=== PATIENT | female | born 1985 | race Caucasian/White ===

== ENCOUNTER → 2017-02-13 | Day surgery (SDC) | payer OTHER ==
[2017-02-13] VITALS (12 sets, daily range): BP systolic 108–137; BP diastolic 64–78
[~2017-02-13] VITALS: Ht 154.9 cm; Wt 57.2 kg
[~2017-02-13] MED LIST: CEFOXITIN SOD IVPB ONE; DiphenhydrAMINE 50mg/ml Inj IVP PRN; Glycopyrrolate 0.2mg/ml 1ml Vial ONE; HYDROmorphone 1mg/ml Carpuject SUBQ PRN; Hydromorphone 0.5mg/0.5ml inj IVP PRN; Ketorolac 30mg Inj IV PRN; Ketorolac 30mg Inj ONE; LR 1000ml ONE; Meperidine 25mg/ml Inj IV PRN; Metoclopramide 10mg/2ml Inj IVP PRN; Midazolam 2mg/2ml Inj IVP PRN; Midazolam 2mg/2ml Inj ONE; NKM; NS IVPB ONE; Neostigmine 1mg/ml 10ml Inj ONE; Norco 5mg/325mg tab ORAL PRN; Propofol 10mg/ml 20ml IV ONE; ProvayBlue 5mg/ml 10ml amp INJ ONE; Ropivacaine 5mg/ml Vial 20ml INJ ONE; Succinylcholine 20mg/ml 10ml vial ONE; Zemuron 50mg/5ml Inj IV ONE; cefOXitin 1gm Inj ONE; fentaNYL 100 mcg/2 mL IV ONE
--- NOTE | 2017-02-13 05:08 | Pre-op HX & Phy Repo 2 SIG ---
DATE OF ADMISSION: 02/13/2017 PREOPERATIVE DIAGNOSES: 1. A 4-cm left ovarian cyst. 2. Dysmenorrhea. HISTORY OF PRESENT ILLNESS: The patient has been followed by me since November of 2016 at which time a left ovarian hemorrhagic cyst was discovered. The patient was subsequently followed two more times and the cyst grew in size. Her last ultrasound was on 02/09/2017, which revealed a 4-cm left ovarian cyst with hyperechoic component, most consistent with an endometrioma, possibly a dermoid. The patient was extensively counseled, and decision was made to proceed with surgery. PAST MEDICAL HISTORY: None. PAST SURGICAL HISTORY: None. ALLERGIES: None. SOCIAL HISTORY: The patient does not smoke. She drinks socially. She lives with her boyfriend. FAMILY HISTORY: Consistent with breast cancer in maternal aunt in her 40s and maternal grandmother with leukemia in her 40s. PHYSICAL EXAMINATION: VITAL SIGNS: Blood pressure 100/60, respiratory rate 18, temperature afebrile. GENERAL: A young female, in no acute distress. HEAD AND NECK: Pupils are reactive to light. No goiter. LUNGS: Clear to auscultation bilaterally. CARDIAC: Regular rate and rhythm. No murmurs. ABDOMEN: Soft, nondistended, and nontender. PELVIC: Bimanual exam consistent with a 4 cm left ovarian cyst, . Uterus normal size. ASSESSMENT: The patient has a left ovarian cyst consistent with possibly endometrioma. PLAN: CO2 laser pelviscopy and ovarian cystectomy as well as hysteroscopy. The patient was warned regarding complications of the surgery including rare complication of bowel or bladder injury, blood clots, pulmonary embolism, seizure complications, or infections. The patient understands these complications as possible and with her boyfriend. Candy Lemus M.D. DR: KUNAL JOB#: [id number] CC:
--- NOTE | 2017-02-13 07:54 | Pre-Procedure Note/Attestation ---
Pre-Procedure Note/Attestation Complete Prior to Procedure Planned Procedure: left Procedure Narrative: CO2 laser pelviscopy, ovarian cystectomy, possible ablation of endometriosis, hysteroscopy Indications for Procedure Pre-Operative Diagnosis: left ovarian complex cyst Attestation I attest that I discussed the nature of the procedure; its benefits; risks and complications; and alternatives (and the risks and benefits of such alternatives ), prior to the procedure, with the patient (or the patient's legal tax compliance representative). I attest that, if there was a reasonable possibility of needing a blood transfusion, the patient (or the patient's legal tax compliance representative) was given the [facility] standardized written summary, pursuant to the [place] Zechariah Blood Safety Act ([place] Health and Safety Code # 1645, as amended). I attest that I re-evaluated the patient just prior to the surgery and that there has been no change in the patient's H&P, except as documented below: [place] RICE Feb 13, 2017 07:54
--- NOTE | 2017-02-13 08:18 | Anethesia Preoperative Eval ---
Anesthesia Pre-op PMH/ROS General Date of Evaluation: Feb 13, 2017 Time of Evaluation: 07:12 Anesthesiologist: Deborah ASA Score: ASA 2 Mallampati Score Class I : Soft palate, uvula, fauces, pillars visible Class II: Soft palate, uvula, fauces visible Class III: Soft palate, base of uvula visible Class IV: Only hard plate visible Mallampati Classification: Class II Surgeon: Mariah Diagnosis: Pelvic pain Surgical Procedure: D&C Hysteroscopy Laparoscopy Laser treatment Anesthesia History: none Family History: no anesthesia problems Allergies: Coded Allergies: PENICILLINS (Verified Allergy, Unknown, Hives, 02/11/17) Medications: see eMAR Past Medical History Cardiovascular: Denies: CAD, HTN, [place], arrhythmia, other, valve dz Pulmonary: Denies: COPD, JAYE, asthma, other Gastrointestinal/Genitourinary: Denies: CRI, ESRD, GERD, other Neurologic/Psychiatric: Denies: CVA, TIA, dementia, depression/anxiety, other Endocrine: Denies: DM, hypothyroidism, other, steroids HEENT: Denies: ATQAS[place] (L), ATQASUK (R), cataract (L), cataract (R), glaucoma, other Hematology/Immune: Denies: DVT, anemia, bleeding disorder, other Musculoskeletal/Integumentary: Denies: DDD, DJD, OA, RA, edema, other PMH Narrative: as above PSxH Narrative: none Anesthesia Pre-op Phys. Exam Physician Exam Last Vital Signs Date Time Temp Pulse Resp B/P Pulse Ox O2 Delivery O2 Flow Rate FiO2 02/13/17 06:23 97.1 75 18 137/78 98 Room Air Constitutional: NAD Neurologic: CN 2-12 intact Cardiovascular: RRR, no M/R/G Respiratory: CTA Gastrointestinal: S/NT/ND Airway Exam Mallampati Score: Class II MO: full Neck: flexible ROM: full Teeth: intact Dentures: no lower, no upper Anesthesia Pre-op A/P Labs see chart Urine Test Test 02/13/17 06:00 Urine HCG, Qualitative Negative Studies Pre-op Studies: EKG - NSR Risk Assessment & Plan Assessment: ASA 2 Plan: GA with ETT PONV prevention Status Change Before Surgery: No Pre-Antibiotics Drug: Cefoxitin 1gr. Given Within 1 Hr of Incision: No Time Given: 08:02 DANIE BRYANT M.D. Feb 13, 2017 08:18
--- NOTE | 2017-02-13 10:49 | Immediate Post-Op Evaluation ---
Immediate Post-Op Evalulation Immediate Post-Op Evalulation Procedure: D&C Hysteroscopy Laparoscopic removal of L ovarian cyst Date of Evaluation: Feb 13, 2017 Time of Evaluation: 09:30 IV Fluids: 1200 Blood Products: none Estimated Blood Loss: min Urinary Output: 200 Blood Pressure Systolic: 116 Blood Pressure Diastolic: 62 Pulse Rate: 74 Respiratory Rate: 20 O2 Sat by Pulse Oximetry: 99 Temperature (Fahrenheit): 97.6 Pain Score (1-10): 2 Nausea: No Vomiting: No Complications none Patient Status: awake, patent, extubated, none Hydration Status: adequate DANIE BRYANT M.D. Feb 13, 2017 10:49
--- NOTE | 2017-02-13 10:50 | 48 Hour Post Anesthesia Eval ---
Post Anesthesia Evaluation Procedure: D&C Hysteroscopy Laparoscopic removal of L ovarian cyst Date of Evaluation: Feb 13, 2017 Time of Evaluation: 10:49 Blood Pressure Systolic: 122 0: 64 Pulse Rate: 76 Respiratory Rate: 20 Temperature (Fahrenheit): 97.6 O2 Sat by Pulse Oximetry: 98 Airway: patent Nausea: No Vomiting: No Pain Intensity: 1 Hydration Status: adequate Cardiopulmonary Status: stable Mental Status/LOC: patient returned to baseline Follow-up Care/Observations: n/a Post-Anesthesia Complications: none Follow-up care needed: ready to discharge DANIE BRYANT M.D. Feb 13, 2017 10:50
--- NOTE | 2017-02-18 17:49 | Brief Operative Note ---
Immediate Post Operative Note Operative Note Pre-op Diagnosis: left ovarian complex cyst Procedure: CO2 laser pelviscopy, left ovarian cystectomy, ablation of endometriosis, myomectomy, hysteroscopy Post-op Diagnosis: endometrioma (left) + multiple foci of endometriosis on bladder, in [place], uterosacrals and bilateral ovaries, subserosal fibroids x2 Post-op Diagnosis: same as pre-op plus Anesthesia: general Specimen: yes Complications: none Condition: stable Estimated Blood Loss: minimal - 100cc Drains: none Implant(s) used?: No [place] RICE Feb 18, 2017 17:48
--- NOTE | 2017-02-19 00:07 | Operative Note - Dictated ---
DATE OF OPERATION: 02/13/2017 PREOPERATIVE DIAGNOSIS: Left ovarian mass. POSTOPERATIVE DIAGNOSES: Left ovarian mass, left ovarian endometrioma, endometriosis, and subserosal fibroid. SURGEON: Candy Lemus M.D. PROPULSION MOTOR AND GENERATOR REPAIRER: William Torrez M.D. ANESTHESIOLOGIST: Slim Cabrera M.D. ESTIMATED BLOOD LOSS: Minimal. PROCEDURES: 1. CO2 laser pelviscopy. 2. Left ovarian cystectomy. 3. Laparoscopic myomectomy. 4. Ablation of endometriosis. 5. Hysteroscopy. COMPLICATIONS: None. SPECIMEN: Left ovarian cyst. PROCEDURE IN DETAIL: After ensuring informed consent, the patient was taken to the operating room, where general anesthesia was induced. The patient was sterilely prepped and draped and placed in dorsal lithotomy position. Weighted speculum was placed in the vagina. Cervix was dilated to an 8 Hegar dilator. Hysteroscope was placed inside the uterine cavity. Uterine cavity appeared to be normal. Hysteroscope was withdrawn. A HUMI-type manipulator was placed inside the uterine cavity and balloon was inflated to 10 mL. Next, attention was turned to the abdomen where a small incision was made inside the umbilicus. Veress needle was placed inside the incision and intraperitoneal placement was confirmed with low opening pressures. Pneumoperitoneum was obtained. Next, 11 mm trocar was placed inside the umbilicus and intraperitoneal placement was confirmed with a camera. Next, after infiltration with local, left lateral and right lateral 5 mm ports were introduced under direct visualization. Next, pelvis was explored. There was left ovarian mass adherent to the sidewall. Also, there was two subserosal fibroids and there were multiple foci of endometriosis including in the posterior cul-de-sac, anterior bladder, uterosacral and on the right ovary. Using laser, the left ovary was incised. Capsule of the cyst was grasped and both sharply and bluntly dissected off of the underlying ovarian stroma. Once the cyst was completely removed from the ovary, it was removed through the 10 mm port. Excellent hemostasis was assured on the ovary using bipolar cautery. Next, using CO2 laser multiple foci of endometriosis were ablated. Please note that the foci on the left pelvic sidewall were ablated after hydrodissection with a dilute solution of Pitressin was injected . Next, attention was turned to the front, where likewise the bladder lesions were also lasered off after hydrodissection. Two subserosal fibroids were removed using unipolar cautery and bipolar cautery to assure excellent hemostasis at the end of the procedure, pelvis was copiously irrigated. Excellent hemostasis was assured. Please note that bilateral tubes was completely normal and appendix looked normal as well serosa. All trocars were removed under direct visualization. Umbilicus was closed with 0 Vicryl. Skin was closed with 4-0 Monocryl and Steri-Strips. HUMI manipulator was removed as well as the Salazar. At the end of the procedure, all instrument and lap counts were correct x2. The patient was taken to the recovery area, extubated and in stable condition. Candy Lemus M.D. DR: CHITO JOB#: [id number] CC:
== END | disposition home or self-care (01) ==
LOC: SUR 05:53
DX: N83.202 Unspecified ovarian cyst, left side (principal); N80.1 Endometriosis of ovary; D25.2 Subserosal leiomyoma of uterus; N94.6 Dysmenorrhea, unspecified; Z88.0 Allergy status to penicillin
CPT/HCPCS: 58545; 58555; 58662; 81025; J0330; J0690; J0694; J1885; J2250; J2405; J2704; J2710; J2795; J3010; J7120; 94003; 94150